=== PATIENT | female | born 1955 | race Caucasian/White ===

== ENCOUNTER → 2019-05-13 | Day surgery (SDC) | payer OTHER ==
[~2019-05-13] MED LIST: MULTI-VITAMIN1 EACH PO
== END | disposition home or self-care (01) ==
LOC: ADM 05-06 09:15 → CIR.AMB 04:45
DX: K80.10 Calculus of gallbladder with chronic cholecystitis without obstruction (principal)

== ENCOUNTER 2022-07-22 06:50 | Day surgery (SDC) | payer OTHER ==
[~2022-07-22] VITALS: Ht 162.6 cm; Wt 58.1 kg
[2022-07-22] MEDS ORDERED: IBU600 MG PO (10:33)
[2022-07-22] MEDS ORDERED: AUGMENTIN XR 11 EACH PO (10:35)
== END 2022-07-22 16:10 | disposition home or self-care (01) ==
LOC: CIR.AMB 06:50
PROVIDERS: ATTEND Obstetrics & Gynecology Gynecology
DX: D25.0 Submucous leiomyoma of uterus (principal)

== ENCOUNTER 2024-02-26 11:07 | Emergency (ER) | payer OTHER ==
[~2024-02-26] VITALS: Ht 165.1 cm; Wt 59.0 kg
[~2024-02-26 11:07] MED LIST changes: +AUGMENTIN XR 11 EACH PO; +IBU600 MG PO
[2024-02-26] MEDS ORDERED: ONDANSETRON 4 MG TAB.RAPDIS PO ONE (13:15)
[2024-02-26 13:52] LABS: HEMATOCRIT 43.5 % (36.0-45.00); HEMOGLOBIN 14.3 g/dL (12.0-15.00); MEAN CELL VOLUME 82.2 fL (80.00-100.00); MEAN CORPUSCULAR HEMOGLOBIN 26.9 pg (27.00-32.0); MEAN CORPUSCULAR HGB CONC 32.8 g/dl (32.0-36.0); PLATELET COUNT 276 K/uL (150-450); RED CELL DISTRIBUTION WIDTH 13.9 % (11.5-14.5)
[2024-02-26 14:17] LABS: ALBUMIN 4.1 gm/dL (3.4-5.0); BILIRUBIN TOTAL 0.63 mg/dL (0.3-1.2); CALCIUM 9.6 mg/dL (8.5-10.1); CREATININE SERUM 0.8 mg/dL (0.55-1.02); GFR 71.54; GLOBULINA 3.7 G/DL (2.4-3.5); POTASSIUM 4.05 mEq/L (3.5-5.1); TOTAL PROTEIN 7.8 gm/dL (6.4-8.2)
[2024-02-26] MEDS ORDERED: MECLIZINE HCL 25 MG TABLET PO ONE (17:00)
== END 2024-02-26 17:47 | disposition home or self-care (01) ==
LOC: ER
PROVIDERS: Emergency Medicine
DX: J32.9 Chronic sinusitis, unspecified (principal); R42 Dizziness and giddiness